=== PATIENT | male | born 1990 | race Two or more races ===

== ENCOUNTER 2017-06-01 20:20 | Emergency (ER) | payer MEDICAID, OTHER ==
[~2017-06-01] VITALS: Ht 175.3 cm; Wt 89.0 kg
[~2017-06-01 20:20] MED LIST: HALO10 PO; LITH8SOL6 PO; VALP250 PO
[2017-06-01] MEDS ORDERED: TRAZ-144 PO (20:41)
[2017-06-01] MEDS ORDERED: BUSP30TA2 PO (20:41)
[2017-06-01] MEDS ORDERED: DIPH25CA85 PO (20:41)
[2017-06-01] MEDS ORDERED: PALI6 PO (20:41)
[2017-06-01 20:55] LABS: BASOPHILS % (AUTO) 1.1 % (0.0-2.0); EOSINOPHILS % (AUTO) 0.3 % (1.0-6.0); HEMATOCRIT 44.5 % (41-53); HEMOGLOBIN 15.2 g/dL (13.5-17.5); LYMPHOCYTES # (AUTO) 3.3 K/uL (1.0-4.8); LYMPHOCYTES % (AUTO) 28.7 % (22.0-44.0); MEAN CORPUSCULAR HEMOGLOBIN 29.3 pg (26.0-34.0); MEAN CORPUSCULAR HGB CONC 34.1 G/dL (31.0-37.0); MEAN CORPUSCULAR VOLUME 86 fL (80-100); MONOCYTES # (AUTO) 1.2 K/uL (0.1-1.0); MONOCYTES % (AUTO) 10.7 % (2.0-9.0); NEUTROPHILS # (AUTO) 6.9 K/uL (1.8-7.7); NEUTROPHILS % (AUTO) 59.2 % (40.0-70.0); PLATELET COUNT (AUTO) 191 K/uL (150-450); RED BLOOD CELL COUNT(AUTO) 5.17 MIL/uL (4.50-5.90); RED CELL DISTRIBUTION WIDTH 13.5 % (11.5-14.5); WHITE BLOOD COUNT (AUTO) 11.6 K/uL (4.5-11.0)
[2017-06-01 21:02] LABS: ANION GAP 9 mmol/L (8-16); CALCIUM, TOTAL 8.7 mg/dL (8.8-10.5); CARBON DIOXIDE 28 mmol/L (22-29); CHLORIDE 105 mmol/L (98-107); CREATININE 1.03 mg/dL (0.60-1.30); GLOMERULAR FILTR. RATE CALC > 60 mL/min (>60); POTASSIUM 3.6 mmol/L (3.5-5.1); SODIUM SERUM 142 mmol/L (136-145); UREA NITROGEN, BLOOD 11 mg/dL (7-18)
[2017-06-01 21:08] LABS: ALANINE AMINOTRANSFERASE 19 U/L (12-78); ASPARTATE AMINOTRANSFERASE 16 U/L (15-37); BILIRUBIN,TOTAL 0.4 mg/dL (0.1-1.0)
[2017-06-01 21:16] VITALS: BP 141/82
== END 2017-06-01 21:45 | disposition home or self-care (01) ==
LOC: EMS 20:23
DX: F15.10 Other stimulant abuse, uncomplicated (principal); F17.210 Nicotine dependence, cigarettes, uncomplicated
CPT/HCPCS: 36415; 80053; 80307; 85025; 99284; G0480

== ENCOUNTER 2023-11-10 11:26 | Inpatient (IN) | payer MEDICARE, MEDICAID ==
[~2023-11-10] VITALS: Ht 175.3 cm; Wt 64.9 kg
[~2023-11-10 11:26] MED LIST changes: +BUSP30TA2 PO; +DIPH25CA85 PO; -HALO10 PO; +HALO10TA21 PO; +PALI6TAB15 PO; +TRAZ-184 PO; -VALP250 PO; +VALP250C48 PO
[2023-11-10 15:17] VITALS: BP 117/86; PULSE 88; RESP 16; TEMP 97.7; O2SAT 97
[2023-11-10 21:24] VITALS: BP 125/61; PULSE 80; RESP 18; TEMP 97.6; O2SAT 96
[2023-11-11 07:43] LABS: BASOPHILS % (AUTO) 0.3 % (0.0-2.0); EOSINOPHILS % (AUTO) 0.7 % (1.0-6.0); HEMATOCRIT 40.8 % (41-53); LYMPHOCYTES # (AUTO) 1.5 K/uL (1.0-4.8); LYMPHOCYTES % (AUTO) 21.8 % (22.0-44.0); MEAN CORPUSCULAR HEMOGLOBIN 28.4 pg (26.0-34.0); MEAN CORPUSCULAR HGB CONC 34.2 G/dL (31.0-37.0); MEAN CORPUSCULAR VOLUME 83 fL (80-100); MONOCYTES # (AUTO) 0.4 K/uL (0.1-1.0); MONOCYTES % (AUTO) 5.3 % (2.0-9.0); NEUTROPHILS # (AUTO) 4.9 K/uL (1.8-7.7); NEUTROPHILS % (AUTO) 71.9 % (40.0-70.0); PLATELET COUNT (AUTO) 185 K/uL (150-450); RED BLOOD CELL COUNT(AUTO) 4.92 MIL/uL (4.50-5.90); WHITE BLOOD COUNT (AUTO) 6.9 K/uL (4.5-11.0)
[2023-11-11 07:56] LABS: HEMOGLOBIN A1C 4.9 % (3.8-5.6)
[2023-11-11 08:11] LABS: ALANINE AMINOTRANSFERASE 13 U/L (12-78); ALBUMIN 3.6 g/dL (3.4-5.0); ALKALINE PHOSPHATASE 81 U/L (46-116); ANION GAP 10 mmol/L (8-16); ASPARTATE AMINOTRANSFERASE 13 U/L (15-37); BILIRUBIN,TOTAL 0.6 mg/dL (0.1-1.0); CARBON DIOXIDE 27 mmol/L (22-29); CHLORIDE 107 mmol/L (98-107); CHOL/HDL RATIO 2.3 (4.2-7.3); CHOLESTEROL 91 mg/dL (131-200); CREATININE 0.83 mg/dL (0.60-1.30); FREE T4 (FREE THYROXINE) 1.44 ng/dL (0.76-1.46); GLOMERULAR FILTR. RATE CALC > 60 mL/min (>60); GLUCOSE,RANDOM 81 mg/dL (70-110); HDL CHOLESTEROL 40 mg/dL (40-60); LDL CHOL (CALC.) 41 mg/dL (0-130); POTASSIUM 3.6 mmol/L (3.5-5.1); SODIUM SERUM 144 mmol/L (136-145); THYROID STIMULATING HORMONE 2.57 uIU/mL (0.36-3.74); TOTAL PROTEIN, SERUM 6.4 g/dL (6.4-8.2); TRIGLYCERIDES 50 mg/dL (15-150); UREA NITROGEN, BLOOD 9 mg/dL (7-18)
[2023-11-11 08:12] VITALS: BP 123/85; PULSE 99; RESP 18; TEMP 97.8; O2SAT 96
[2023-11-11] MEDS ORDERED: DOCUSATE SODIUM 100 MG CAPSULE PO PRN (11:15)
[2023-11-11] MEDS ORDERED: PETROLATUM,WHITE 28 GM JELLY TP PRN (11:15)
[2023-11-11] MEDS ORDERED: ALBUTEROL SULFATE HFA 90 MCG/PUFF 8 GM INHALER IH PRN (11:15)
[2023-11-11] MEDS ORDERED: ACETAMINOPHEN 325 MG TABLET PO PRN (11:15)
[2023-11-11] MEDS ORDERED: LOPERAMIDE HCL 2 MG CAPSULE PO PRN (11:15)
[2023-11-11] MEDS ORDERED: CloNIDine HCL 0.1 MG TABLET PO PRN (11:15)
[2023-11-11] MEDS ORDERED: MAGNESIUM HYDROXIDE SUSPENSION 30 ML UDCUP PO PRN (11:15)
[2023-11-11] MEDS ORDERED: ONDANSETRON HCL 4 MG TABLET PO PRN (11:15)
[2023-11-11] MEDS ORDERED: GuaiFENesin/D-METHORPHAN [SUGAR-FREE] 200-20MG/10 ML SYRUP UDCUP PO PRN (11:15)
[2023-11-11] MEDS: BusPIRone HCL 10 MG TABLET PO SCH (17:23)
[2023-11-11] MEDS: HALOPERIDOL 5 MG TABLET PO SCH (20:55)
[2023-11-11 21:16] VITALS: BP 112/69; PULSE 63; RESP 16; TEMP 97.3; O2SAT 97
[2023-11-12] MEDS: INFLUENZA VIRUS VACCINE QVS 2023-24 (6MO+)/PF 60 MCG/0.5 ML SYRINGE IM. ONE (08:21)
[2023-11-12 08:22] VITALS: BP 115/70; PULSE 92; RESP 18; TEMP 98; O2SAT 98
[2023-11-12 10:10] LABS: APPEARANCE,URINE CLEAR (CLEAR); BILIRUBIN,URINE NEGATIVE (NEGATIVE); COLOR,URINE YELLOW (YELLOW); GLUCOSE, URINE (UA) NEGATIVE (NEGATIVE); KETONES,URINE NEGATIVE (NEGATIVE); LEUKOCYTE ESTERASE ,URINE NEGATIVE (NEGATIVE); NITRATE,URINE NEGATIVE (NEGATIVE); OCCULT BLOOD,URINE NEGATIVE (NEGATIVE); PROTEIN,URINE 300-600,SEE CONFIRM mg/dL (NEGATIVE); SPECIFIC GRAVITIY, URINE 1.017 (1.003-1.030); UROBILINOGEN,URINE <=1.0 mg/dL (<=1.0)
[2023-11-12 10:15] LABS: SULFOSALICYLIC ACID,URINE 3+ (Negative)
[2023-11-12 10:16] LABS: ALCOHOL, URINE DRUG SCREEN NEGATIVE (NEGATIVE); AMPHET/METH SCREEN,URINE NEGATIVE (NEGATIVE); BARBITURATE SCREEN, URINE NEGATIVE (NEGATIVE); BENZODIAZEPINES SCREEN,URINE NEGATIVE (NEGATIVE); CANNABINOID SCREEN,URINE NEGATIVE (NEGATIVE); COCAINE SCREEN,URINE NEGATIVE (NEGATIVE); METHADONE SCREEN, URINE NEGATIVE (NEGATIVE); OPIATE SCREEN,URINE NEGATIVE (NEGATIVE); PHENCYCLIDINE SCREEN,URINE NEGATIVE (NEGATIVE)
[2023-11-12 10:27] LABS: BACTERIA,URINE None Seen /HPF (None Seen); SQUAMOUS EPITHELIAL CELL,UR Few /LPF (None Seen)
[2023-11-12] MEDS: ZOLPIDEM TARTRATE 10 MG TABLET PO PRN (20:27)
[2023-11-12 23:30] VITALS: RESP 17; TEMP 97.8; O2SAT 98
[2023-11-13] MEDS ORDERED: BUSP10TA23 PO (12:10)
[2023-11-13] MEDS ORDERED: HALO5TAB23 PO (12:10)
[2023-11-13 13:02] VITALS: BP 106/63; PULSE 92; RESP 18; TEMP 97.4; O2SAT 98
[2023-11-13 20:14] VITALS: BP 122/80; PULSE 86; RESP 18; TEMP 98.1; O2SAT 96
[2023-11-14 09:05] VITALS: BP 120/70; PULSE 65; RESP 16; TEMP 97.2; O2SAT 98
[2023-11-14] MEDS: LORazepam 2 MG TABLET PO PRN (18:03)
[2023-11-14 20:20] VITALS: BP 126/83; PULSE 82; RESP 16; TEMP 98.1; O2SAT 96
[2023-11-14] MEDS: BusPIRone HCL 10 MG TABLET PO SCH (21:36)
[2023-11-15 10:29] VITALS: BP 107/62; PULSE 89; RESP 19; TEMP 98.2; O2SAT 98
[2023-11-15] MEDS: MAG HYDROX/ALUMINUM HYD/SIMETH ES 30 ML SUSPENSION UDCUP PO PRN (18:55)
[2023-11-15 22:08] VITALS: BP 133/91; PULSE 95; RESP 18; TEMP 97.6; O2SAT 96
[2023-11-16 08:04] VITALS: BP 128/65; PULSE 112; RESP 18; TEMP 98.2; O2SAT 98
[2023-11-16 21:11] VITALS: BP 107/64; PULSE 70; RESP 16; TEMP 98.2; O2SAT 97
[2023-11-17 08:06] VITALS: BP 125/82; PULSE 110; RESP 18; TEMP 98.9; O2SAT 97
[2023-11-17 20:00] VITALS: BP 108/73; PULSE 108; RESP 18; TEMP 98.3; O2SAT 95
[2023-11-18 08:13] VITALS: BP 111/60; PULSE 73; RESP 18; TEMP 97.8; O2SAT 97
[2023-11-18] MEDS: NICOTINE 14 MG/24 HOUR PATCH TD PRN (13:00)
[2023-11-18 20:05] VITALS: BP 123/90; PULSE 90; RESP 16; TEMP 98.3; O2SAT 97
[2023-11-19 01:12] VITALS: BP 119/87; PULSE 90; RESP 17; TEMP 98.2; O2SAT 96
[2023-11-19] MEDS: HALOPERIDOL 5 MG TABLET PO PRN (01:15)
[2023-11-19 08:07] VITALS: BP 119/80; PULSE 80; RESP 17; TEMP 98.4; O2SAT 96
[2023-11-19 20:11] VITALS: BP 106/66; PULSE 72; RESP 16; TEMP 98.2; O2SAT 96
[2023-11-20 08:37] VITALS: BP 90/59; PULSE 71; RESP 18; TEMP 97.1; O2SAT 97
[2023-11-20 09:24] VITALS: BP 124/72; PULSE 98; RESP 18
[2023-11-20 20:15] VITALS: BP 133/89; PULSE 70; RESP 18; TEMP 97.5; O2SAT 98
[2023-11-21 08:37] VITALS: BP 112/69; PULSE 97; RESP 16; TEMP 97.9; O2SAT 97
[2023-11-21 20:11] VITALS: BP 113/85; PULSE 106; RESP 18; TEMP 98.1; O2SAT 98
[2023-11-22 01:04] VITALS: BP 122/80; PULSE 83; RESP 18; TEMP 97.7; O2SAT 96
[2023-11-22 08:22] VITALS: BP 109/66; PULSE 54; RESP 18; TEMP 98.3; O2SAT 97
[2023-11-22 21:43] VITALS: BP 119/71; PULSE 79; RESP 18; TEMP 97.8; O2SAT 98
[2023-11-23 02:11] VITALS: BP 115/82; PULSE 81; RESP 18; TEMP 97.9; O2SAT 98
[2023-11-23 08:21] VITALS: BP 109/60; PULSE 76; RESP 16; TEMP 98.4; O2SAT 97
[2023-11-23 20:00] VITALS: BP 120/70; PULSE 80; RESP 18; TEMP 97.8; O2SAT 96
[2023-11-24 08:16] VITALS: BP 126/71; PULSE 85; RESP 17; TEMP 98.2; O2SAT 97
[2023-11-24 20:06] VITALS: BP 115/84; PULSE 104; RESP 18; TEMP 97.6; O2SAT 96
[2023-11-25 08:33] VITALS: BP 109/64; PULSE 76; RESP 17; TEMP 97.9; O2SAT 97
[2023-11-25 20:05] VITALS: BP 114/76; PULSE 100; RESP 19; TEMP 96.9; O2SAT 97
[2023-11-26 01:47] VITALS: BP 112/72; PULSE 93; RESP 16; TEMP 97.3; O2SAT 97
[2023-11-26 09:45] VITALS: RESP 16
[2023-11-26 20:15] VITALS: BP 131/84; PULSE 64; RESP 18; TEMP 97.6; O2SAT 94
[2023-11-27 08:37] VITALS: BP 90/59; PULSE 67; RESP 18; TEMP 97.7; O2SAT 99
[2023-11-27 20:30] VITALS: BP 112/76; PULSE 71; RESP 18; TEMP 98; O2SAT 97
[2023-11-28 12:48] VITALS: BP 102/64; PULSE 87; RESP 18; TEMP 97.4; O2SAT 98
[2023-11-28 22:10] VITALS: BP 124/73; PULSE 90; RESP 16; TEMP 97.4; O2SAT 98
[2023-11-29 01:05] VITALS: BP 122/72; PULSE 74; RESP 18; TEMP 97.4; O2SAT 98
[2023-11-29 08:28] VITALS: RESP 17
[2023-11-29] MEDS: TUBERCULIN, PURIFIED PROTEIN DERIVATIVE 5 TU/0.1 ML SYRINGE ID ONE (11:54)
[2023-11-29 20:22] VITALS: BP 117/75; PULSE 81; RESP 19; TEMP 97.8; O2SAT 98
[2023-11-30 08:29] VITALS: BP 100/60; PULSE 85; RESP 17; TEMP 97.6; O2SAT 97
[2023-11-30 21:43] VITALS: BP 114/74; PULSE 82; RESP 18; TEMP 97.8; O2SAT 96
[2023-12-01 08:40] VITALS: RESP 17
[2023-12-02 00:43] VITALS: BP 141/80; PULSE 90; RESP 18; TEMP 97.9
[2023-12-02 08:35] VITALS: RESP 18
[2023-12-02 21:15] VITALS: BP 136/81; PULSE 92; RESP 19; TEMP 97.6; O2SAT 98
[2023-12-03 08:15] VITALS: BP 132/81; PULSE 94; RESP 18; TEMP 97.3; O2SAT 95
[2023-12-03 20:28] VITALS: BP 138/82; PULSE 97; RESP 18; TEMP 97.6; O2SAT 97
[2023-12-04 08:53] VITALS: RESP 18; O2SAT 97
[2023-12-04 20:15] VITALS: BP 113/78; PULSE 95; RESP 18; TEMP 96.3; O2SAT 96
[2023-12-05 09:10] VITALS: BP 115/67; PULSE 90; RESP 20; TEMP 97.9; O2SAT 97
[2023-12-05 20:30] VITALS: BP 100/55; PULSE 80; RESP 19; TEMP 96.7; O2SAT 97
[2023-12-06 00:14] VITALS: BP 120/78; PULSE 82; RESP 16; TEMP 97.9; O2SAT 97
[2023-12-06 08:00] VITALS: RESP 16
[2023-12-06 20:21] VITALS: BP 103/60; PULSE 83; RESP 17; TEMP 97.1; O2SAT 95
[2023-12-07 11:29] VITALS: BP 110/61; PULSE 71; RESP 18; TEMP 97.8; O2SAT 98
[2023-12-07 20:08] VITALS: BP 124/77; PULSE 109; RESP 20; TEMP 97.9; O2SAT 96
[2023-12-08 09:57] VITALS: BP 118/80; PULSE 88; RESP 18; TEMP 97.6; O2SAT 97
[2023-12-08 16:13] VITALS: BP 108/59; PULSE 68; RESP 18; TEMP 97.8; O2SAT 99
[2023-12-08 21:55] VITALS: BP 125/81; PULSE 100; RESP 18; TEMP 97.6; O2SAT 97
[2023-12-09 08:30] VITALS: RESP 16
[2023-12-09 20:23] VITALS: BP 124/77; PULSE 104; RESP 18; TEMP 98; O2SAT 95
[2023-12-10 10:00] VITALS: BP 110/70; PULSE 78; RESP 18; TEMP 97; O2SAT 97
[2023-12-10 22:45] VITALS: BP 117/80; PULSE 95; RESP 18; TEMP 98.1; O2SAT 98
[2023-12-11] MEDS: LORazepam 2 MG/ML VIAL IM ONE (18:38)
[2023-12-11] MEDS: HALOPERIDOL LACTATE 5 MG/ML VIAL IM ONE (18:39)
[2023-12-11] MEDS: DiphenhydrAMINE HCL 50 MG/ML VIAL IM ONE (18:39)
[2023-12-11 21:07] VITALS: BP 122/88; PULSE 99; RESP 18; TEMP 97.1; O2SAT 98
[2023-12-12 17:00] VITALS: BP 150/90; PULSE 106; RESP 18; TEMP 97.5; O2SAT 97
[2023-12-12] MEDS: HALOPERIDOL 5 MG TABLET PO SCH (20:32)
[2023-12-12 21:06] VITALS: BP 108/63; PULSE 73; TEMP 97.4; O2SAT 96
[2023-12-13 16:57] VITALS: BP 110/70; PULSE 79; RESP 18; TEMP 97.4; O2SAT 98
[2023-12-13 20:21] VITALS: BP 116/78; PULSE 108; RESP 19; TEMP 98.2; O2SAT 99
[2023-12-14 08:00] VITALS: BP 108/65; PULSE 95; RESP 18; TEMP 97.6; O2SAT 97
[2023-12-14] MEDS ORDERED: ChlorproMAZINE HCL 50 MG/2 ML AMP ONE (19:07)
[2023-12-14] MEDS ORDERED: LORazepam 2 MG/ML VIAL ONE (19:07)
[2023-12-14] MEDS ORDERED: DiphenhydrAMINE HCL 50 MG/ML VIAL ONE (19:08)
[2023-12-14] MEDS: DiphenhydrAMINE HCL 50 MG/ML VIAL IM ONE (19:25)
[2023-12-14] MEDS: LORazepam 2 MG/ML VIAL IM ONE (19:25)
[2023-12-14] MEDS: ChlorproMAZINE HCL 50 MG/2 ML AMP IM ONE (19:25)
[2023-12-14 21:30] VITALS: RESP 18
[2023-12-14] MEDS: IBUPROFEN 400 MG TABLET PO PRN (22:48)
== END 2023-12-14 22:10 | disposition short-term general hospital (02) | DRG 885 ==
LOC: B2X 14:49
PROVIDERS: ADMIT Psychiatry & Neurology Psychiatry; ATTEND Psychiatry & Neurology Psychiatry
PROC: GZHZZZZ Group Psychotherapy (ICD-10-PCS; principal; 2023-11-11)
PROC: GZ51ZZZ Individual Psychotherapy, Behavioral (ICD-10-PCS; 2023-11-11)
DX: F20.0 Paranoid schizophrenia (principal); G47.00 Insomnia, unspecified; K59.00 Constipation, unspecified; F41.9 Anxiety disorder, unspecified; F31.9 Bipolar disorder, unspecified; Z79.899 Other long term (current) drug therapy
CPT/HCPCS: 80053; 80061; 80307; 81001; 81002; 83036; 84439; 84443; 85025; 87081; J1200; J1630; J2060; J3230